=== PATIENT | male | born 1985 | race Caucasian/White ===

== ENCOUNTER 2021-03-24 10:03 | Emergency (ER) | payer MEDICAID ==
[~2021-03-24] VITALS: Ht 177.8 cm; Wt 73.5 kg
--- NOTE | 2021-03-24 14:36 | EKG ---
[facility] [address] [facility] [place], [place] [address] Signed Normal sinus rhythm with sinus arrhythmia Normal ECG No previous ECGs available Confirmed by REJI ROMERO MD ([id number]) on 03/24/2021 2:35:53 PM Electronically Signed By: REJI ROMERO MD 03/24/21 1436 PATIENT NAME: DIONY SERRANO Electrocardiogram DATE OF : 87 PHYSICIAN: REJI ROMERO MD REPORT #: [id number] REPORT IS CONFIDENTIAL AND NOT TO BE RELEASED WITHOUT AUTHORIZATION
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
== END 2021-03-24 14:05 | disposition home or self-care (01) ==
LOC: ED 10:03
DX: R07.89 Other chest pain (principal); F17.200 Nicotine dependence, unspecified, uncomplicated
CPT/HCPCS: 71045; 80053; 83735; 84484; 85025; 93005; 93010; 99285-25